=== PATIENT | male | born 2000 | race Caucasian/White ===

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

== ENCOUNTER 2023-01-30 13:39 | Emergency (ER) | payer BC ==
[~2023-01-30] VITALS: Ht 190.5 cm; Wt 88.5 kg
[2023-01-30 13:40] VITALS: BP_SYST 100
[2023-01-30] MEDS ORDERED: LIDOCAINE 1% 10 MG/ML, 20 ML MDV INJ ONE (14:30)
[2023-01-30] MEDS ORDERED: IBUP-1971 PO (14:36)
[2023-01-30] MEDS ORDERED: CEPH-548 PO (15:14)
[2023-01-30] MEDS ORDERED: IBUPROFEN 800 MG TABLET PO ONE (15:15)
[2023-01-30] MEDS ORDERED: cephALEXin 500 MG CAPSULE PO ONE (15:15)
[2023-01-30] MEDS ORDERED: BACITRACIN 1 GM OINT TP ONE (15:15)
== END 2023-01-30 15:30 | disposition home or self-care (01) ==
LOC: SED 13:39
DX: S61.211A Laceration without foreign body of left index finger without damage to nail, initial encounter (principal); Z79.899 Other long term (current) drug therapy; W26.8XXA Contact with other sharp object(s), not elsewhere classified, initial encounter; Y93.89 Activity, other specified; Y92.89 Other specified places as the place of occurrence of the external cause; Y99.8 Other external cause status
CPT/HCPCS: 99284; 73140; 29130; 12002; J2001